=== PATIENT | male | born 1990 | race Caucasian/White ===

== ENCOUNTER 2017-06-27 08:07 | Inpatient (IN) | payer MEDICAID ==
[2017-06-27] MEDS ORDERED: IOHEXOL 300mgI/mL 100 ML VIAL PO ONE (08:08)
--- NOTE | 2017-06-27 08:52 | ED Physician Chart ---
ED Chief Complaint/HPI - Patient Information Date Seen:: 06/27/17 Time Seen:: 08:40 Chief Complaint:: upper abdominal pain History of Present Illness:: Patient developed upper abdominal pain more on the right side yesterday at 4 or 5 PM. Pain radiates to the right flank. Patient vomited twice. He's had some bowel movements this morning which were not diarrhea. Allergies:: Allergies Allergy/AdvReac Type Severity Reaction Status Date / Time No Known Allergies Allergy Verified 06/27/17 08:27 Vitals:: Vital Signs - 8 hr 06/27/17 08:28 Temp 97.9 F HR 86 RR 17 BP 153/102 O2 Sat % 99 Historian:: Patient Review:: Nurse's Note Reviewed ED Review of Systems - Review of Systems General/Constitutional: No fever, No chills Skin: No skin lesions Head: No headache Eyes: No loss of vision ENT: No earache Neck: No neck pain, No thyromegaly Cardio Vascular: No chest pain Pulmonary: No SOB GI: Nausea, Vomiting, No diarrhea, Pain G/U: No dysuria Musculoskeletal: No bone or joint pain Endocrine: No polyuria, No polydipsia Psychiatric: No prior psych history Neurological: No syncope, No focal symptoms ED Past Medical History - Past Medical History Past Medical History: No significant medical hx Family History: None Social History: Non Smoker, No Alcohol Surgical History: None Psychiatricy History: None Medication: None ED Physical Exam - Physical Examination General/Constitutional: Well-developed, well-nourished, Alert, No distress Head: Atraumatic Eyes: Lids, conjuctiva normal, PERRL Skin: Nl inspection, No rash, No skin lesions, No ecchymosis, Well hydrated, No lymphadenopathy ENMT: External ears, nose nl, TM canals nl, Nasal exam nl, Lips, teeth, gums nl , Oropharynx nl, Tonsils nl Neck: No nuchal rigidity Respiratory: Nl effort/Exclusion, Clear to Auscultation Cardio Vascular: RRR, No murmur, gallop, rubs, NL S1 S2 GI: No organomegaly, No hernia, Normal BS's, Nondistended, No mass/bruits, No McBurney tenderness Other GI comments:: Epigastric and right upper quadrant tenderness Extremities: No edema Neuro/Psych: No focal deficits Misc: No paraspinal tenderness ED Labs/Radiology/EKG Results - Lab Results Results: Laboratory Results - last 24 hr 06/27/17 06/27/17 09:00 09:00 WBC 17.3 H RBC 5.59 Hgb 16.6 Hct 48.7 MCV 87.1 MCH 29.7 MCHC Differential 34.1 RDW 12.5 Plt Count 267 MPV 7.6 Band Neutrophils % 2 Neutrophils (Manual) 84 H Lymphocytes 5 L Monocytes 8 Eosinophils 1 Platelet Estimate ADEQUATE Sodium 134 L Potassium 3.9 Chloride 101 Carbon Dioxide 28.0 Anion Gap 8.9 BUN 17 Creatinine 0.7 Est GFR ( Amer) > 60.0 Est GFR (Non-Af Amer) > 60.0 BUN/Creatinine Ratio 24.3 Glucose 120 H Calcium 9.4 Lipase 11 - Radiology Results Results: CAT scan showed acute appendicitis ED Assessment - Assessment General Assessment: At 1020 patient's pain was not improved. Bowel sounds present; lower abdominal tenderness with suprapubic and right lower quadrant rebound tenderness; RLQ tenderness more than suprapubic tenderness. At about 1105 patient had suprapubic and RLQ tenderness with rebound. Appendix not visualized on ultrasound due to increased gas. At 1225 I spoke to apparently an OR tech who was in the operating room with Dr. Hood. He relayed the message to Dr. Hood that the patient has has acute appendicitis. He wished the patient nothing by mouth and receive antibiotics. ED Septic Shock - . Is Septic Shock (SBP<90, OR Lactate>4 mmol\L) present?: No - <6hrs of presentation: Vital Signs: Vital Signs - 8 hr 06/27/17 08:28 Temp 97.9 F HR 86 RR 17 BP 153/102 O2 Sat % 99 ED Reassessment (Disposition) - Reassessment Reassessment Condition:: Unchanged - Diagnosis Diagnosis:: Acute appendicitis - Patient Disposition Admitted to:: Med/Surg Admitting Medical Physician:: 0h Condition at Disposition:: Stable, Unchanged
[2017-06-27 09:35] LABS: HEMATOCRIT 48.7 % (41.0-60); HEMOGLOBIN 16.6 gm/dL (12-16); MEAN CELL VOLUME 87.1 fl (80-99); MEAN CORPUSCULAR HEMOGLOBIN 29.7 pg (26.0-30.0); MEAN CORPUSCULAR HGB CONC 34.1 pg (28.0-36.0); MEAN PLATELET VOLUME 7.6 fl; PLATELET COUNT 267 Th/cmm (150-400); RED BLOOD COUNT 5.59 Mil/cmm (4.30-5.70); RED CELL DISTRIBUTION WIDTH 12.5 % (11.5-20.0)
[2017-06-27 09:38] LABS: WHITE BLOOD COUNT 17.3 Th/cmm (4.8-10.8)
[2017-06-27 09:39] LABS: MANUAL DIFF REQUIRED? YES
[2017-06-27 09:46] LABS: ANION GAP 8.9 (7.0-16.0); BUN - UREA NITROGEN 17 mg/dL (7-25); CALCIUM SERUM 9.4 mg/dL (8.6-10.3); CHLORIDE 101 mEq/L (98-107); CREATININE - SERUM 0.7 mg/dL (0.7-1.3); GFR AFRICAN-AMERICAN > 60.0 ml/min (>90); GFR NON AFRICAN-AMERICAN > 60.0 ml/min; GLUCOSE 120 mg/dL (70-105); LIPASE 11 U/L (11-82); POTASSIUM SERUM 3.9 mEq/L (3.5-5.1); SODIUM SERUM 134 mEq/L (136-145)
[2017-06-27 10:14] LABS: BAND NEUTROPHILE 2 % (0-10); EOSINOPHIL 1 % (0-5); LYMPHOCYTE 5 % (20-50); MONOCYTE 8 % (2-10); NEUTROPHILS 84 % (40-80); PLATELET ESTIMATE ADEQUATE (NORMAL); TOTAL CELLS COUNTED 100
--- NOTE | 2017-06-27 10:26 | Diagnostic Imaging Report ---
Exam Limited examination of the gallbladder HISTORY: Abdominal pain. Real-time ultrasound examination limited to gallbladder was performed. The study demonstrates distended gallbladder there is no evidence for cholelithiasis or pericholecystic fluid collection. The common bile duct measures 2 mm. IMPRESSION unremarkable examination of gallbladder.
[2017-06-27] MEDS ORDERED: Sodium Chloride 0.9% 1,000 ML IV ONE (10:28)
[2017-06-27] MEDS ORDERED: HYDROmorphone 1 mg/mL 1mL Syr IVP STA ×2 (10:29→13:11)
[2017-06-27] MEDS ORDERED: HYDROmorphone 1 mg/mL 1mL Syr ONE ×2 (10:39→12:56)
--- NOTE | 2017-06-27 11:54 | Diagnostic Imaging Report ---
Ultrasound examination right lower quadrant HISTORY: Question of appendicitis Findings: Real-time ultrasound examination right lower quadrant demonstrate no evidence of tubular noncompressible structures. IMPRESSION: Low index of suspicion of appendicitis. Clinically indicated CT examination of the abdomen might be helpful
--- NOTE | 2017-06-27 12:11 | Diagnostic Imaging Report ---
Exam: CT examination of the pelvis. HISTORY: Appendicitis. Total DLP equals 475 CTDI equals 9.7 Findings: Multiple contiguous thin section of the abdomen and pelvis obtained from lower thorax to pubic symphysis with administration intravenous contrast material. No prior studies available for comparison. The study demonstrates normal aeration of the lung parenchyma the bases. The liver and spleen intact. The gallbladder is normal. The pancreas is normal. The kidneys concentrate and excrete contrast material normal fashion. There is evidence for acute appendicitis with prominence of appendix and edema surrounding appendix. Small appendicolith is noted. There is no evidence of diverticular disease of diverticulitis. Prostate gland is enlarged. To renal bladder is intact. No abnormal adenopathy is noted IMPRESSION: Acute appendicitis.
[2017-06-27] MEDS ORDERED: D5 IV ONE (12:41)
[2017-06-27] MEDS ORDERED: NS IV ONE (12:41)
[2017-06-27] MEDS ORDERED: POTASSIUM CHLORIDE IV ONE (12:41)
[2017-06-27] MEDS ORDERED: Piperacillin Sodium/Tazobact 3.375 gm Vial IV ONE (12:55)
[2017-06-27 19:27] LABS: INR 0.99 (0.5-1.4); PROTHROMBIN TIME (TEST) 10.3 SECONDS (9.5-11.5)
[2017-06-27] MEDS ORDERED: Meperidine 50 mg/mL 1mL Syr ONE ×2 (19:32→19:48)
[2017-06-27] MEDS ORDERED: fentaNYL Citrate 100 mcg/2mL Vial ONE ×3 (19:32→21:46)
[2017-06-27] MEDS ORDERED: Dexamethasone Sodium Phos 4 mg/mL Vial ONE (19:32)
[2017-06-27] MEDS ORDERED: Midazolam 1mg/ml 2 ml vial IV ONE (19:32)
[2017-06-27] MEDS ORDERED: Neostigmine 10mg/10mL Vial ONE (20:51)
--- NOTE | 2017-06-27 23:32 | Operative Report ---
DATE OF SURGERY: 06/27/2017 TIME: 9:09 p.m. POSTOPERATIVE DIAGNOSIS: Acute non-ruptured appendicitis. POSTOPERATIVE DIAGNOSIS: Acute non-ruptured appendicitis. OPERATION PERFORMED: Laparoscopic appendectomy. SPECIMENS: Appendix. ANESTHESIA: General and local. ANESTHESIOLOGIST: Dr. Melendez. ESTIMATED BLOOD LOSS: 30 mL. SURGEON: Otto Hood M.D. PRESS ASSISTANT AND FEEDER: None. PROSTHETIC DEVICES: None. COMPLICATIONS: None. PROCEDURE DESCRIPTION: After confirming patient identification, procedure to be done, the patient placed in supine position. The patient administered general anesthesia, intubated uneventfully. The abdomen was then prepped and draped in usual sterile fashion. Timeout was performed. The abdomen was shaved prior to prep. A supraumbilical incision was made with a scalpel. Fascia was incised, entered into the abdominal cavity without injuring underlying bowel. CO2 pneumoperitoneum was achieved using open Gannon technique. The patient was placed in laparoscopic appendectomy positioned, head down, rotated to the left side. A 12 mm port was placed in right upper quadrant, a 5 mm port was placed in the right lower abdomen. The appendix was identified. It was retrocecal position and stuck down to the retroperitoneum. This was grasped and dissected with blunt dissection. There was some peritoneum wrapped around the appendix, which made the dissection difficult and inflammation. I had to use the EnSeal device to divide the mesoappendix and essentially make an opening into the mesoappendix at the base of the appendix. The EnSeal device was then used to divide the mesoappendix and then the base of the appendix was relatively free from inflammatory process. An Jolly stapler device was fired across the base of the appendix. The appendix was detached from the cecum, placed into an Endobag, removed through the supraumbilical port site. Irrigation was performed. Hemostasis ensured. Irrigation fluid suctioned out. The 12 mm port was removed. The Vu-Gerry closure system was used to approximate the fascia using 0 Vicryl stitches. The one 5 mm port was removed. CO2 pneumoperitoneum was released and hemostasis ensured. The supraumbilical port fascia was approximated with interrupted 0 Vicryl sutures. This was very difficult because the patient was morbidly obese and finding the fascial edges was difficult but manageable. Skin and subcutaneous were injected with local anesthesia. Skin was approximated using skin ruth. Dressings were applied. The patient tolerated the procedure well. The patient was woken up from anesthesia and taken to recovery room in stable condition. JOB# [id number] MTDD
[2017-06-28] MEDS ORDERED: Piperacillin Sodium/Tazobact 3.375 gm Vial IV ONE ×2 (00:20→05:49)
[2017-06-28] MEDS: Morphine Sulfate 4 mg/mL 1mL Syr IV PRN ×2 (00:49→08:15)
[2017-06-28 06:43] LABS: BASOPHILE ABSOLUTE 0.3 Th/cumm (0-0.2); HEMATOCRIT 44.8 % (41.0-60); LYMPHOCYTE ABSOLUTE 0.6 Th/cmm (1.5-3.0); MANUAL DIFF REQUIRED? YES; MEAN CELL VOLUME 86.8 fl (80-99); MEAN CORPUSCULAR HEMOGLOBIN 29.1 pg (26.0-30.0); MEAN CORPUSCULAR HGB CONC 33.6 pg (28.0-36.0); MEAN PLATELET VOLUME 7.3 fl; MONOCYTE ABSOLUTE 0.6 Th/cmm (0.3-1.0); NEUTROPHILE ABSOLUTE 14.6 Th/cmm (1.8-8.0); PLATELET COUNT 254 Th/cmm (150-400); RED BLOOD COUNT 5.15 Mil/cmm (4.30-5.70); RED CELL DISTRIBUTION WIDTH 12.3 % (11.5-20.0)
[2017-06-28 06:53] LABS: WHITE BLOOD COUNT 16.1 Th/cmm (4.8-10.8)
[2017-06-28 07:14] LABS: BAND NEUTROPHILE 5 % (0-10); LYMPHOCYTE 3 % (20-50); MONOCYTE 4 % (2-10); NEUTROPHILS 88 % (40-80); TOTAL CELLS COUNTED 100
--- NOTE | 2017-06-28 08:40 | Diagnostic Imaging Report ---
Portable chest x-ray Time: 1914 hours History: Chest pain Allowing for portable technique the heart size is normal. No focal pulmonary parenchymal processes. No hilar or mediastinal abnormalities. Mild redistribution of the pulmonary vasculature might represent early congestive heart failure changes Impression: Question of mild congestion bilaterally, no acute pulmonic infiltrates.
[2017-06-28] MEDS ORDERED: Probiotic Screen MC PRN (16:53)
[2017-06-28] MEDS ORDERED: Influenza Vaccine 0.5 mL Syr IM ONE (18:00)
--- NOTE | 2017-06-28 23:22 | Discharge Summary ---
DATE OF DISCHARGE: 06/28/2017 HISTORY AND HOSPITAL COURSE: The patient is a 26-year-old male presented to the ER with right lower quadrant abdominal pain and tenderness, had workup done in the ER. CT scan was positive for acute appendicitis. He had a leukocytosis of 17.3 and sepsis. The patient was subsequently given IV antibiotics and taken to the OR. He had an uneventful laparoscopic appendectomy done last night. Overnight, he has been hemodynamically stable. He has been afebrile. He is ambulating. His white blood cell count has trended downward 16.1 slightly from yesterday. He has been on Zosyn IV antibiotics postop, he will get his last dose at 6:00 p.m. tonight and then he will be discharged home with [place] for pain and then Augmentin for p.o. antibiotics for a 5-day course. He knows to contact my office for any postop concerns or problems. DISCHARGE DIAGNOSES: Acute appendicitis, nonperforated, status post laparoscopic appendectomy. Sepsis, improved. JOB# [id number]
[2017-06-29] MEDS ORDERED: Lactobacillus Rhamnosus GG 15 Billion CFU CAP.SPRINK PO SCH (09:00)
--- NOTE | 2017-06-29 15:59 | Pathology Report ---
[id number] Collection Date: 06/27/2017 Surgeon: Dr. Daniel Hood Specimen Description: Appendix Gross Description: Received in formalin is a 7.5 x 2.5 x 1.5 cm appendectomy specimen with nice-friend exudate coating the outer surface of the appendix. Sectioning shows an intact appendix wall and lumen measuring 1.2 cm in diameter. There is no evidence for perforation. Microscopic Description: The histologic sections show appendix with extensive acute inflammation consisting of large numbers of neutrophils that are seen extending through the muscular wall and mucosa of the appendix. Diagnosis: Acute appendicitis. [facility]# [id number] [facility]
== END 2017-06-28 18:33 | disposition home or self-care (01) | DRG 710 ==
LOC: ER 08:07 → MSI 13:44
PROVIDERS: ADMIT Surgery; ATTEND Surgery
PROC: 0DTJ4ZZ Resection of Appendix, Percutaneous Endoscopic Approach (ICD-10-PCS; principal; 2017-06-27)
DX: A41.9 Sepsis, unspecified organism (principal); E66.01 Morbid (severe) obesity due to excess calories; K35.80 Unspecified acute appendicitis; Z68.37 Body mass index [BMI] 37.0-37.9, adult
CPT/HCPCS: 36415-UA; 71010-TC; 76705-TC; 80048-TC; 82948-90; 83690-TC; 85007-TC; 85027-TC; 85610-TC; 93005; 96372; 96375; J0330; J1100; J1170; J1885; J2001; J2250; J2405; J2543; J2704; J2710; J3010; J3480; J7030; J7042; Q9967; V2790; X6024; X6258; Z7610